=== PATIENT | male | born 1930 | race Caucasian/White ===

== ENCOUNTER 2018-05-30 03:28 | Emergency (ER) | payer MEDICARE, MEDICAID ==
[~2018-05-30] VITALS: Ht 165.1 cm; Wt 52.3 kg
[~2018-05-30 03:28] MED LIST: ATOR40TA28 PO; DIGO250T73 PO; ISOS30TA6 PO; LOSA50TA65 PO; METO-416 PO; RIVA15T PO
[2018-05-30] MEDS ORDERED: GABA-529 PO (03:56)
[2018-05-30] MEDS ORDERED: LOSA50TA64 PO (03:56)
[2018-05-30] MEDS ORDERED: ISOS30TA6 PO (03:56)
[2018-05-30] MEDS ORDERED: FINA5TAB41 PO (03:56)
[2018-05-30] MEDS ORDERED: DIGO0.12 PO (03:56)
[2018-05-30] MEDS ORDERED: ATOR40TA28 PO (03:56)
[2018-05-30] MEDS ORDERED: METO-558 PO (03:56)
[2018-05-30] MEDS ORDERED: ACETAMINOPHEN 325 MG TABLET PO ONE (04:30)
[2018-05-30 04:44] LABS: BASOPHILS % (AUTO) 0.6 % (0.0-2.0); EOSINOPHILS % (AUTO) 1.4 % (1.0-6.0); HEMATOCRIT 34.2 % (41-53); HEMOGLOBIN 11.2 g/dL (13.5-17.5); LYMPHOCYTES # (AUTO) 2.4 K/uL (1.0-4.8); LYMPHOCYTES % (AUTO) 22.6 % (22.0-44.0); MEAN CORPUSCULAR HEMOGLOBIN 30.8 pg (26.0-34.0); MEAN CORPUSCULAR HGB CONC 32.6 G/dL (31.0-37.0); MEAN CORPUSCULAR VOLUME 94 fL (80-100); MONOCYTES # (AUTO) 1.2 K/uL (0.1-1.0); MONOCYTES % (AUTO) 11.5 % (2.0-9.0); NEUTROPHILS # (AUTO) 6.7 K/uL (1.8-7.7); NEUTROPHILS % (AUTO) 63.9 % (40.0-70.0); PLATELET COUNT (AUTO) 188 K/uL (150-450); RED BLOOD CELL COUNT(AUTO) 3.62 MIL/uL (4.50-5.90); RED CELL DISTRIBUTION WIDTH 16.8 % (11.5-14.5)
[2018-05-30 04:51] LABS: CREATININE 1.41 mg/dL (0.60-1.30); POTASSIUM 3.7 mmol/L (3.5-5.1)
[2018-05-30 04:57] LABS: ALBUMIN 3.3 g/dL (3.4-5.0); BILIRUBIN,TOTAL 0.8 mg/dL (0.1-1.0); TOTAL PROTEIN, SERUM 7.9 g/dL (6.4-8.2)
[2018-05-30 06:15] LABS: APPEARANCE,URINE CLEAR (CLEAR); BILIRUBIN,URINE NEGATIVE (NEGATIVE); GLUCOSE, URINE (UA) NEGATIVE (NEGATIVE); KETONES,URINE NEGATIVE (NEGATIVE); LEUKOCYTE ESTERASE ,URINE TRACE (NEGATIVE); NITRATE,URINE NEGATIVE (NEGATIVE); OCCULT BLOOD,URINE NEGATIVE (NEGATIVE); PROTEIN,URINE POS 1+ (NEGATIVE)
[2018-05-30 06:29] LABS: RBC,URINE 0-2 /HPF (0-2)
[2018-05-30 06:30] LABS: BACTERIA,URINE Rare /HPF (None Seen); SQUAMOUS EPITHELIAL CELL,UR Few /LPF (None Seen)
[2018-05-30 06:31] LABS: WBC,URINE 26-50 /HPF (0-5)
[2018-05-30] MEDS ORDERED: CIPROFLOXACIN HCL 250 MG TABLET PO ONE (06:45)
[2018-05-30 06:58] VITALS: BP 133/81
== END 2018-05-30 07:08 | disposition home or self-care (01) ==
LOC: EMS 03:28
DX: I10 Essential (primary) hypertension (principal); F05 Delirium due to known physiological condition; N39.0 Urinary tract infection, site not specified; F03.90 Unspecified dementia, unspecified severity, without behavioral disturbance, psychotic disturbance, mood disturbance, and anxiety; I48.91 Unspecified atrial fibrillation; M19.90 Unspecified osteoarthritis, unspecified site; I25.10 Atherosclerotic heart disease of native coronary artery without angina pectoris; I11.9 Hypertensive heart disease without heart failure; E78.00 Pure hypercholesterolemia, unspecified; Z86.73 Personal history of transient ischemic attack (TIA), and cerebral infarction without residual deficits; Z95.0 Presence of cardiac pacemaker
CPT/HCPCS: 51701; 70450; 87086

== ENCOUNTER 2018-07-19 19:41 | Emergency (ER) | payer MEDICARE, MEDICAID ==
[~2018-07-19] VITALS: Ht 167.6 cm; Wt 75.0 kg
[~2018-07-19 19:41] MED LIST changes: +DIGO0.12 PO; -DIGO250T73 PO; +FINA5TAB41 PO; +GABA-529 PO; +LOSA50TA64 PO; -LOSA50TA65 PO; -METO-416 PO; +METO-558 PO; -RIVA15T PO
[2018-07-19] MEDS ORDERED: TAMS-1 PO (20:09)
[2018-07-19 21:05] LABS: BASOPHILS % (AUTO) 0.3 % (0.0-2.0); EOSINOPHILS % (AUTO) 2.1 % (1.0-6.0); HEMATOCRIT 33.6 % (41-53); HEMOGLOBIN 11.1 g/dL (13.5-17.5); LYMPHOCYTES # (AUTO) 1.6 K/uL (1.0-4.8); LYMPHOCYTES % (AUTO) 14.6 % (22.0-44.0); MEAN CORPUSCULAR HEMOGLOBIN 31.1 pg (26.0-34.0); MEAN CORPUSCULAR VOLUME 94 fL (80-100); MONOCYTES % (AUTO) 8.9 % (2.0-9.0); NEUTROPHILS # (AUTO) 7.9 K/uL (1.8-7.7); NEUTROPHILS % (AUTO) 74.1 % (40.0-70.0); PLATELET COUNT (AUTO) 161 K/uL (150-450); RED BLOOD CELL COUNT(AUTO) 3.56 MIL/uL (4.50-5.90); RED CELL DISTRIBUTION WIDTH 16.7 % (11.5-14.5)
[2018-07-19 21:23] LABS: LACTIC ACID 1.1 mmol/L (0.4-2.0); TROPONIN I 0.03 ng/mL (0.00-0.05)
[2018-07-19 21:27] LABS: ALBUMIN 3.1 g/dL (3.4-5.0); BILIRUBIN,TOTAL 1.2 mg/dL (0.1-1.0); CALCIUM, TOTAL 9.5 mg/dL (8.8-10.5); CREATININE 3.49 mg/dL (0.60-1.30); DIGOXIN 1.1 ng/mL (0.90-2.00); POTASSIUM 4.1 mmol/L (3.5-5.1); TOTAL PROTEIN, SERUM 7.8 g/dL (6.4-8.2)
[2018-07-19 21:33] LABS: APPEARANCE,URINE CLEAR (CLEAR); BILIRUBIN,URINE NEGATIVE (NEGATIVE); GLUCOSE, URINE (UA) NEGATIVE (NEGATIVE); KETONES,URINE NEGATIVE (NEGATIVE); LEUKOCYTE ESTERASE ,URINE TRACE (NEGATIVE); NITRATE,URINE NEGATIVE (NEGATIVE); OCCULT BLOOD,URINE NEGATIVE (NEGATIVE); PROTEIN,URINE TRACE (NEGATIVE); UROBILINOGEN,URINE 0.2 mg/dL (<=1.0)
[2018-07-19 21:50] LABS: BACTERIA,URINE None Seen /HPF (None Seen); RBC,URINE None Seen /HPF (0-2); WBC,URINE 0-2 /HPF (0-5)
[2018-07-19 21:51] LABS: SQUAMOUS EPITHELIAL CELL,UR Rare /LPF (None Seen)
[2018-07-19] MEDS ORDERED: AZITHROMYCIN 500 MG/NS 250 ML IV ONE (23:00)
[2018-07-19] MEDS ORDERED: CefTRIAXone 1 GM/DEXTROSE 50 ML IV ONE (23:00)
[2018-07-20 02:05] VITALS: BP 124/55
[2018-07-20 02:48] LABS: GLUCOSE,POINT OF CARE 88 MG/DL (70-110)
== END 2018-07-20 03:01 | disposition short-term general hospital (02) ==
LOC: EMS 19:45
DX: N17.9 Acute kidney failure, unspecified (principal); J15.9 Unspecified bacterial pneumonia; R41.82 Altered mental status, unspecified; R60.0 Localized edema; I48.91 Unspecified atrial fibrillation; I11.9 Hypertensive heart disease without heart failure; E78.00 Pure hypercholesterolemia, unspecified; I25.10 Atherosclerotic heart disease of native coronary artery without angina pectoris; Z95.0 Presence of cardiac pacemaker; Z79.899 Other long term (current) drug therapy
CPT/HCPCS: 36415; 51702; 70450; 71045; 80053; 80162; 81001; 82140; 82962; 83605; 83880; 84484; 85025; 93005; 96365; 96366; 96368; 99285; J0456; J0696